=== PATIENT | female | born 1970 | race American Indian/Alaskan Native ===

== ENCOUNTER 2018-12-09 16:43 | Outpatient (CLI) | payer BC ==
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
== END 2018-12-09 16:44 | disposition home or self-care (01) ==
LOC: XRAY 16:43
PROVIDERS: ATTEND Orthopaedic Surgery
DX: M25.561 Pain in right knee (principal)